=== PATIENT | female | born 1990 | race Hispanic/Latino ===

== ENCOUNTER 2023-04-11 13:52 | Outpatient (CLI) | payer OTHER | END 2023-04-11 13:53 | disposition home or self-care (01) | LOC: CSHULT 13:52 | PROVIDERS: ATTEND Family Medicine | DX: Z34.82 Encounter for supervision of other normal pregnancy, second trimester (principal); Z3A.20 20 weeks gestation of pregnancy | CPT/HCPCS: 76805 ==

== ENCOUNTER 2023-06-21 17:26 | Day surgery (SDC) | payer OTHER ==
[2023-06-21] MEDS ORDERED: Benzonatate 100 MG CAP PO PRN (18:13)
[2023-06-21] MEDS ORDERED: Benzonatate 100 MG CAP PO SCH (18:15)
[2023-06-21] MEDS ORDERED: Acetaminophen 500 MG TAB PO SCH (18:15)
[2023-06-21 18:17] VITALS: BMI 26.8
== END 2023-06-21 18:56 | disposition home or self-care (01) ==
LOC: CSHLD/OP 17:26
PROVIDERS: ATTEND Family Medicine
DX: O46.93 Antepartum hemorrhage, unspecified, third trimester (principal); O36.8330 Maternal care for abnormalities of the fetal heart rate or rhythm, third trimester, not applicable or unspecified; O99.513 Diseases of the respiratory system complicating pregnancy, third trimester; J10.1 Influenza due to other identified influenza virus with other respiratory manifestations; O99.891 Other specified diseases and conditions complicating pregnancy; N89.8 Other specified noninflammatory disorders of vagina; Z3A.30 30 weeks gestation of pregnancy

== ENCOUNTER 2023-08-15 05:22 | Inpatient (IN) | payer MEDICAID, OTHER, SELFPAY ==
[2023-08-15] MEDS ORDERED: Methylergonovine 0.2 MG/ML VIAL IM PRN (07:04)
[2023-08-15] MEDS ORDERED: hydrALAZINE 20 MG/ML VIAL SLOW IVP PRN ×2 (07:04→16:48)
[2023-08-15] MEDS ORDERED: fentaNYL 50 mcg/mL 1 mL Vial SLOW IVP PRN (07:04)
[2023-08-15] MEDS ORDERED: Lidocaine 1% (PF) 30 ML VIAL SC PRN (07:04)
[2023-08-15] MEDS ORDERED: Misoprostol 200 MCG TAB PR PRN (07:04)
[2023-08-15] MEDS ORDERED: Lactated Ringer's 1,000 ML IV SCH (07:04)
[2023-08-15] MEDS ORDERED: Promethazine HCl 25 MG/ML VIAL IM PRN ×2 (07:04→08:39)
[2023-08-15] MEDS ORDERED: Oxytocin 30 units/NS 500 ML 500 ML IV SCH ×2 (07:04)
[2023-08-15] MEDS ORDERED: Tranexamic Acid 1,000 MG/10 ML VIAL IVP PRN (07:04)
[2023-08-15] MEDS ORDERED: Ibuprofen 800 MG TAB PO PRN (07:04)
[2023-08-15] MEDS ORDERED: Diphenoxylate HCl/Atropine Tablet PO PRN (07:04)
[2023-08-15] MEDS ORDERED: Ondansetron PF 4 MG/2 ML Vial IVP PRN ×3 (07:04→16:48)
[2023-08-15] MEDS ORDERED: HYDROcodone/Acetaminophen 5/325 mg Tablet PO PRN ×2 (07:04→16:48)
[2023-08-15] MEDS ORDERED: Acetaminophen 500 MG TAB PO PRN (07:04)
[2023-08-15] MEDS ORDERED: Carboprost 250 MCG/ML AMP IM PRN (07:04)
[2023-08-15 07:29] VITALS: BMI 28.4
[2023-08-15] MEDS: Oxytocin 30 units/NS 500 ML 500 ML IV SCH (07:32)
[2023-08-15 07:44] LABS: Hematocrit 37.3 % (34.9-44.5); Mean Corpuscular HGB CONC 34.9 g/dL (32.0-36.0); Mean Corpuscular Hemoglobin 33.9 pg (27.0-33.0); Mean Corpuscular Volume 97.1 fl (81.6-98.3); Mean Platelet Volume 12.2 fl (7.4-10.4); Platelet Count 157 10x3/uL (150-450); RBC Distribution Width 13.4 % (11.5-14.5); Red Blood Cell (RBC) Count 3.84 10x6/uL (3.90-5.03); White Blood Cell (WBC) Count 9.1 10x3/uL (3.5-10.5)
[2023-08-15] MEDS: Penicillin G Potassium 5 MILL.UNITS in Sodium Chloride 0.9% 100 ML IVPB SCH (08:00)
[2023-08-15 08:35] LABS: HBSAg Index 0.27 S/CO (0-0.99); Hep B Surf Ag - L&D Non-Reactive S/CO (NonReactive)
[2023-08-15 08:37] LABS: Syphilis Antibody Nonreactive (Nonreactive); Syphilis Antibody Index 0.06 S/CO (<1.00 Non-Reactive)
[2023-08-15] MEDS ORDERED: Acetaminophen 325 MG TAB PO PRN (08:39)
[2023-08-15] MEDS ORDERED: Naloxone HCl 0.4 mg/ml Vial IVP PRN ×2 (08:39)
[2023-08-15] MEDS ORDERED: Moisturizing Cream (Eucerin) 113 GM JAR TOP PRN (08:39)
[2023-08-15] MEDS ORDERED: Lactated Ringer's 500 ML IV PRN (08:39)
[2023-08-15] MEDS ORDERED: diphenhydrAMINE 50 MG/ML VIAL IVP PRN (08:39)
[2023-08-15] MEDS ORDERED: ePHEDrine Sulfate 50 MG/10 ML VIAL SLOW IVP PRN (08:39)
[2023-08-15] MEDS ORDERED: Communication Order-Pharmacy FS SCH (08:45)
[2023-08-15] MEDS ORDERED: fentaNYL 2 mcg/Ropivacaine 0.2% Epidural 100 ML CADD EPIDURAL SCH (08:45)
[2023-08-15] MEDS: fentaNYL/Ropivacaine Epidural 100 ML ONE (09:23)
[2023-08-15] MEDS: Penicillin G 2.5 MILL.units 2.5 MILL.UNITS in Premix 1 BAG IVPB SCH (12:30)
[2023-08-15] MEDS ORDERED: Lanolin Ointment 7 GM TUBE TOP PRN (16:48)
[2023-08-15] MEDS ORDERED: Bisacodyl 10 MG SUPP PR PRN (16:48)
[2023-08-15] MEDS ORDERED: Milk Of Magnesia 30 ML UDCUP PO PRN (16:48)
[2023-08-15] MEDS ORDERED: diphenhydrAMINE 25 MG CAP PO PRN (16:48)
[2023-08-15] MEDS: Penicillin G Potassium 5 MILL.UNITS VIAL ONE (17:37)
[2023-08-15] MEDS: Dexmedetomidine 200 MCG/2 ML VIAL ONE (17:37)
[2023-08-15] MEDS: Methylergonovine 0.2 MG/ML VIAL ONE (17:38)
[2023-08-15] MEDS: Boostrix 0.5 ML (Tdap) VIAL (>/=7 yrs of age) IM ONE (17:38)
[2023-08-15] MEDS: Ferrous Sulfate 325 MG TAB PO SCH (17:39)
[2023-08-15] MEDS ORDERED: Bupivacaine 0.25% HCL 30 ML VIAL ONE (19:54)
[2023-08-15] MEDS: Ibuprofen 800 MG TAB PO SCH (20:59)
[2023-08-15] MEDS: Docusate 100 MG CAP PO SCH (21:00)
[2023-08-16] MEDS: Prenatal Vitamin 1 TAB PO SCH (08:25)
[2023-08-16 11:55] VITALS: BP 103/59; TEMP 98.2
== END 2023-08-16 18:15 | disposition home or self-care (01) | DRG 807 ==
LOC: CSHLD 05:22 → CSHPP 17:07
PROVIDERS: ADMIT Family Medicine; ATTEND Family Medicine
PROC: 10E0XZZ Delivery of Products of Conception, External Approach (ICD-10-PCS; principal; 2023-08-15)
PROC: 3E033VJ Introduction of Other Hormone into Peripheral Vein, Percutaneous Approach (ICD-10-PCS; 2023-08-15)
PROC: 10907ZC Drainage of Amniotic Fluid, Therapeutic from Products of Conception, Via Natural or Artificial Opening (ICD-10-PCS; 2023-08-15)
DX: O99.824 Streptococcus B carrier state complicating childbirth (principal); Z37.0 Single live birth; Z3A.39 39 weeks gestation of pregnancy
CPT/HCPCS: 36415; 85027; 86780; 86850; 86900; 86901; 87340; J0665; J2540; J2590; J3490